=== PATIENT | female | born 1950 | race Caucasian/White ===

== ENCOUNTER 2016-12-20 09:13 | Outpatient (CLI) | payer OTHER ==
--- NOTE | 2016-12-20 11:25 | DIAGNOSTIC IMAGING REPORT ---
PROCEDURE: DEXA BONE DENSITY STUDY CLINICAL INDICATION: OSTEOPOROSIS COMPARISON: DEXA 09/06/2013 FINDINGS: LUMBAR SPINE: Bone mineral density 0.691 g/cm2, T score -3.2 osteoporosis which represents a 0.8% decrease from the previous study LEFT HIP: Bone mineral density 0.659 g/cm2, T score -2.3 osteopenia which represents a 7.2% decrease from the previous study LEFT FEMORAL NECK: Bone mineral density 0.506 g/cm2, T score -3.1 osteoporosis with which represents a 5.4% decrease from the previous study FRACTURE RISK CALCULATION ( when applicable): 10-year fracture risk of a major osteoporotic fracture and of a hip fracture not reported because all T-scores at or below -2.5 (T score greater or equal to -1.0 to: NORMAL) (T score from -1.1 to -2.4: OSTEOPENIA) (T score ess than or equal to -2.5: OSTEOPOROSIS) IMPRESSION: 1. Osteoporosis lumbar spine and femoral neck. Osteopenia left hip with a 7.2% decrease in bone mineral density since the previous study.
--- NOTE | 2016-12-20 11:47 | DIAGNOSTIC IMAGING REPORT ---
PROCEDURE: MG BILATERAL SCREENING W/CAD INDICATION: SCREENING TECHNIQUE: Bilateral CC and MLO digital views. COMPARISON: Compared to 11/02/2015, 09/06/2013, and 12/02/2011. FINDINGS: Computer-aided detection applied. Moderately dense. No change. IMPRESSION: 1. Negative mammogram RESULT CODE: 1- Negative. A. A negative report should not delay biopsy if a dominant or clinically suspicious mass is present. 10-15% of cancers are not identified by x-ray. B. A negative report may reinforce clinical impression. C. Adenosis and dense breasts may obscure an underlying neoplasm. D. False positive reports average 6-10%. E.. A yearly screening mammogram is recommended. A reminder letter will be scheduled.
== END 2016-12-20 23:00 ==
LOC: MAM SRH 09:13
DX: M81.8 Other osteoporosis without current pathological fracture (principal); M85.88 Other specified disorders of bone density and structure, other site; Z12.31 Encounter for screening mammogram for malignant neoplasm of breast